=== PATIENT | female | born 1945 | race Caucasian/White ===

== ENCOUNTER → 2017-01-21 | Outpatient (CLI) | payer MEDICARE, OTHER | LOC: KOH-I 14:16 | DX: M25.561 Pain in right knee (principal) | CPT/HCPCS: 73564 ==

== ENCOUNTER → 2021-02-21 | Outpatient (CLI) | payer MEDICARE, OTHER | LOC: EXRD 11:14 | DX: I65.23 Occlusion and stenosis of bilateral carotid arteries (principal) | CPT/HCPCS: 93880 ==

== ENCOUNTER → 2021-06-06 | Outpatient (CLI) | payer MEDICARE, OTHER | LOC: CT 14:30 | DX: R41.89 Other symptoms and signs involving cognitive functions and awareness (principal) | CPT/HCPCS: 70450 ==